=== PATIENT | female | born 1990 | race Two or more races ===

== ENCOUNTER 2018-11-10 02:39 | Emergency (ER) | payer OTHER ==
[~2018-11-10] VITALS: Ht 160 cm; Wt 53.5 kg
[~2018-11-10 02:39] MED LIST: AMOX1TAB12 PO; CEFADROXIL500 MG PO; DOLOGEN CAPLET1 EACH PO
== END 2018-11-10 05:55 | disposition home or self-care (01) ==
LOC: ER 02:39
DX: K29.70 Gastritis, unspecified, without bleeding (principal)

== ENCOUNTER 2019-04-29 00:29 | Emergency (ER) | payer OTHER ==
[~2019-04-29] VITALS: Ht 160 cm; Wt 62.1 kg
[2019-04-29] MEDS ORDERED: PRENATAL + DHA1 EAC1 (00:59)
[2019-04-29] MEDS ORDERED: AMOXICILLIN500 MG (01:00)
[2019-04-29] MEDS ORDERED: TYLENOL CODEINE PO (01:29)
== END 2019-04-29 01:50 | disposition home or self-care (01) ==
LOC: ER 00:29
DX: K08.89 Other specified disorders of teeth and supporting structures (principal)

== ENCOUNTER 2019-05-27 11:34 | Inpatient (IN) | payer OTHER ==
[~2019-05-27] VITALS: Ht 160 cm; Wt 66.7 kg
[~2019-05-27 11:34] MED LIST changes: +AMOXICILLIN500 MG; +PRENATAL + DHA1 EAC1; +TYLENOL CODEINE PO
== END 2019-07-03 12:28 | disposition home or self-care (01) | DRG 807 ==
LOC: OB/GYN 07-01 06:19 → LDR 07-01 06:19 → OB/GYN 07-01 14:15
PROVIDERS: ADMIT Obstetrics & Gynecology
PROC: 10E0XZZ Delivery of Products of Conception, External Approach (ICD-10-PCS; principal; 2019-07-01)
PROC: 0HQ9XZZ Repair Perineum Skin, External Approach (ICD-10-PCS; 2019-07-01)
PROC: 3E033VJ Introduction of Other Hormone into Peripheral Vein, Percutaneous Approach (ICD-10-PCS; 2019-07-01)
PROC: 10907ZC Drainage of Amniotic Fluid, Therapeutic from Products of Conception, Via Natural or Artificial Opening (ICD-10-PCS; 2019-07-01)
PROC: 4A1HXCZ Monitoring of Products of Conception, Cardiac Rate, External Approach (ICD-10-PCS; 2019-07-01)
DX: O70.0 First degree perineal laceration during delivery (principal); Z37.0 Single live birth; Z3A.40 40 weeks gestation of pregnancy